=== PATIENT | female | born 2000 | race Two or more races ===

== ENCOUNTER 2019-08-28 09:35 | Emergency (ER) | payer OTHER ==
[2019-08-28 09:48] VITALS: BMI 23.3
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
[2019-08-28] MEDS ORDERED: SODIUM CHLORIDE 1,000 ML IV STA (10:20)
[2019-08-28] MEDS ORDERED: ACETAMINOPHEN 1000 MG/100 ML VIAL (NON FORMULARY) IVPB ONE (10:21)
[2019-08-28] MEDS ORDERED: METOCLOPRAMIDE HCL INJECTION 10 MG/2 ML VIAL IVPB ONE (10:21)
[2019-08-28] MEDS ORDERED: ONDANSETRON 4 MG/2 ML VIAL IVPUSH ONE (10:21)
[2019-08-28] MEDS ORDERED: METOCLOPRAMIDE HCL INJECTION 10 MG/2 ML VIAL ONE (12:02)
[2019-08-28] MEDS ORDERED: ACETAMINOPHEN INJECTION 100 ML IVPB ONE (12:03)
[2019-08-28 12:11] LABS: BASO % 1.4 % (0-2.0); HEMATOCRIT 40.3 % (32.4-45.2); HEMOGLOBIN 13.4 GM/dL (10.7-15.3); LYMPH % 11.1 % (8-40); MCH 25.8 pg (25.7-33.7); MCHC 33.1 g/dl (32.0-36.0); MEAN CELL VOLUME 77.7 fl (80-96); MEAN PLT VOLUME 9.2 fl (7.5-11.1); MONO % 7.9 % (3.8-10.2); NEUT % 79.6 % (42.8-82.8); PLATELET COUNT 200 K/MM3 (134-434); RBC 5.18 M/mm3 (3.60-5.2); RDW 13.5 % (11.6-15.6); WHITE BLOOD COUNT 10.4 K/mm3 (4.0-10.0)
[2019-08-28 12:39] LABS: ALBUMIN 3.4 g/dl (3.4-5.0); BILIRUBIN,TOTAL 0.4 mg/dL (0.2-1); BLOOD UREA NITROGEN 5.8 mg/dL (7-18); CALCIUM 8.7 mg/dL (8.5-10.1); CREATININE 0.8 mg/dL (0.55-1.3); POTASSIUM 3.6 mmol/L (3.5-5.1); TOT PROT 7.7 g/dl (6.4-8.2)
[2019-08-28] MEDS ORDERED: IBUPROFEN 600 MG TABLET (FP) PO ONE ×2 (14:33→14:37)
[2019-08-28 14:34] VITALS: BP 110/60; PULSE 100; TEMP 100.6
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
== END 2019-08-28 15:00 | disposition home or self-care (01) ==
LOC: JER 09:35
PROC: 3E033GC Introduction of Other Therapeutic Substance into Peripheral Vein, Percutaneous Approach (ICD-10-PCS; principal; 2019-08-28)
PROC: 3E033GC Introduction of Other Therapeutic Substance into Peripheral Vein, Percutaneous Approach (ICD-10-PCS; 2019-08-28)
PROC: 3E033NZ Introduction of Analgesics, Hypnotics, Sedatives into Peripheral Vein, Percutaneous Approach (ICD-10-PCS; 2019-08-28)
DX: S09.93XA Unspecified injury of face, initial encounter (principal); R51 Headache; R42 Dizziness and giddiness; H57.12 Ocular pain, left eye; B34.9 Viral infection, unspecified; Y04.2XXA Assault by strike against or bumped into by another person, initial encounter; Y93.89 Activity, other specified; Y92.89 Other specified places as the place of occurrence of the external cause; Y99.8 Other external cause status; Y07.03 Male partner, perpetrator of maltreatment and neglect
CPT/HCPCS: 36415; 70450-TC; 70486-TC; 72125-TC; 80053; 84703; 85025; 86593; 87070; 87077; 87389; 87491; 87591; 87880; 99282-25; J0131; J7030

== ENCOUNTER 2023-06-23 18:47 | Emergency (ER) | payer OTHER ==
[2023-06-23 18:56] VITALS: BP 118/70; PULSE 101; RESP 18; TEMP 100.2; BMI 25.6
== END 2023-06-23 21:17 | disposition home or self-care (01) ==
LOC: JER 18:47
DX: R55 Syncope and collapse (principal)
CPT/HCPCS: 99281-25